=== PATIENT | male | born 1935 | race Caucasian/White ===

== ENCOUNTER 2017-05-26 09:56 | Inpatient (IN) | payer MEDICARE, OTHER ==
[~2017-05-26] VITALS: Ht 172.7 cm; Wt 74.7 kg
[~2017-05-26 09:56] MED LIST: ASPI-1264 PO; KRIL500C PO; METO50TA16 PO; MULT-1141 PO; NOR5T PO; SODI650T29 PO
[2017-05-26] MEDS ORDERED: normal saline 1000ml 1,000 ML IV ONE (11:45)
[2017-05-26] MEDS ORDERED: acetaminophen 325mg tablet PO ONE (12:00)
[2017-05-26 12:11] LABS: BASOPHILS % (AUTO) 0.4 % (0-1); EOSINOPHILS # (AUTO) 0.2 X10'3 (0-0.9); EOSINOPHILS % (AUTO) 3.1 % (0-6); HEMATOCRIT 30.9 % (42.0-52.0); LYMPHOCYTES # (AUTO) 0.7 X10'3 (1.1-4.8); LYMPHOCYTES % (AUTO) 12.2 % (21-51); MEAN CORPUSCULAR HEMOGLOBIN 34.3 PG (27.0-31.0); MEAN CORPUSCULAR HGB CONC 35.5 % (33.0-36.5); MEAN CORPUSCULAR VOLUME 96.8 FL (78-98); MEAN PLATELET VOLUME 9.3 FL (7.4-10.4); MONOCYTES # (AUTO) 0.5 X10'3 (0-0.9); MONOCYTES % (AUTO) 8.8 % (2-12); NEUTROPHILS # (AUTO) 4.6 X10'3 (1.8-7.7); NEUTROPHILS % (AUTO) 75.5 % (42-75); PLATELET COUNT 96 X10'3 (140-440); RED BLOOD COUNT 3.19 X10'6 (4.70-6.10)
[2017-05-26 12:21] LABS: ALANINE AMINOTRANSFERASE 40 U/L (12-78); ALBUMIN 3.1 G/DL (3.4-5.0); ALBUMIN/GLOBULIN RATIO 0.7 (1.1-1.5); ALKALINE PHOSPHATASE 202 IU/L (46-116); ANION GAP 8 (8-16); ASPARTATE AMINO TRANSFERASE 42 U/L (10-37); BLOOD UREA NITROGEN 37 MG/DL (7-18); BUN/CREATININE RATIO 7.3 (5.4-32.0); CALCIUM 9.5 MG/DL (8.5-10.1); CHLORIDE 99 MMOL/L (99-107); GLUCOSE 102 MG/DL (70-104); POTASSIUM 3.5 MMOL/L (3.5-5.1); SODIUM 142 MMOL/L (135-145); TOTAL CARBON DIOXIDE 35.5 MMOL/L (24-32); TOTAL PROTEIN 7.8 G/DL (6.4-8.2); eGFR 11 ML/MIN
[2017-05-26 12:35] LABS: INR 1.2 INR; PARTIAL THROMBOPLASTIN TIME 25 SECONDS (22-32); PROTHROMBIN TIME 12.3 SECONDS (9.0-12.0)
[2017-05-26] MEDS ORDERED: FURO40TA4 PO (16:30)
[2017-05-26] MEDS ORDERED: KETO5DRO39 RIGHTEYE (16:30)
[2017-05-26] MEDS ORDERED: LISI-604 PO (16:30)
[2017-05-26] MEDS ORDERED: OFLO5DRO3 RIGHTEYE (16:30)
[2017-05-26] MEDS ORDERED: CARV-50 PO (16:30)
[2017-05-26] MEDS ORDERED: HYDROcodone/acetaminophen 5mg/325mg tablet PO PRN (16:55)
[2017-05-26] MEDS ORDERED: mag hydrox/Alum hydrox/simeth 30ml oral suspension PO PRN (17:00)
[2017-05-26] MEDS ORDERED: ondansetron/PF 4mg/2ml inj IV PRN (17:00)
[2017-05-26] MEDS ORDERED: HYDROmorphone 1 mg/ml syringe IV PRN (17:00)
[2017-05-26] MEDS ORDERED: acetaminophen 325mg tablet PO PRN (17:00)
[2017-05-26] MEDS ORDERED: bisacodyl 10mg suppository rectal RC PRN (17:00)
[2017-05-26] MEDS ORDERED: HYDROmorphone inj. 0.5 MG/0.5 ML DISP.SYRIN IV PRN (17:09)
[2017-05-26 19:39] VITALS: BP 126/67
[2017-05-26] MEDS: ofloxacin 0.33% 5ml ophthalmic drops RIGHTEYE SCH (21:00)
[2017-05-26] MEDS: docusate sod 100mg capsule PO SCH (21:47)
[2017-05-26] MEDS: heparin, porcine 5000 units/ml vial SQ SCH (21:47)
[2017-05-26 22:00] VITALS: BP 136/70
[2017-05-27 06:00] VITALS: BP 132/74
[2017-05-27 07:16] LABS: BASOPHILS % (AUTO) 0.2 % (0-1); EOSINOPHILS # (AUTO) 0.3 X10'3 (0-0.9); EOSINOPHILS % (AUTO) 3.8 % (0-6); HEMATOCRIT 30.7 % (42.0-52.0); HEMOGLOBIN 10.6 g/dl (14.0-17.9); LYMPHOCYTES # (AUTO) 0.8 X10'3 (1.1-4.8); LYMPHOCYTES % (AUTO) 10.7 % (21-51); MEAN CORPUSCULAR HEMOGLOBIN 33.6 PG (27.0-31.0); MEAN CORPUSCULAR HGB CONC 34.5 % (33.0-36.5); MEAN CORPUSCULAR VOLUME 97.6 FL (78-98); MEAN PLATELET VOLUME 9.6 FL (7.4-10.4); MONOCYTES # (AUTO) 0.8 X10'3 (0-0.9); MONOCYTES % (AUTO) 10.6 % (2-12); NEUTROPHILS # (AUTO) 5.9 X10'3 (1.8-7.7); NEUTROPHILS % (AUTO) 74.7 % (42-75); PLATELET COUNT 100 X10'3 (140-440); RED BLOOD COUNT 3.15 X10'6 (4.70-6.10); WHITE BLOOD COUNT 7.9 X10'3 (4.5-11.0)
[2017-05-27 07:30] LABS: ALANINE AMINOTRANSFERASE 35 U/L (12-78); ALBUMIN 3.1 G/DL (3.4-5.0); ALBUMIN/GLOBULIN RATIO 0.7 (1.1-1.5); ALKALINE PHOSPHATASE 198 IU/L (46-116); ANION GAP 11 (8-16); ASPARTATE AMINO TRANSFERASE 37 U/L (10-37); BILIRUBIN,TOTAL 1.3 MG/DL (0.1-1.0); BLOOD UREA NITROGEN 48 MG/DL (7-18); CALCIUM 9.3 MG/DL (8.5-10.1); CHLORIDE 97 MMOL/L (99-107); GLUCOSE 105 MG/DL (70-104); MAGNESIUM 2.1 MG/DL (1.5-2.4); PHOSPHORUS 4.4 MG/DL (2.3-4.5); POTASSIUM 3.7 MMOL/L (3.5-5.1); SODIUM 140 MMOL/L (135-145); TOTAL CARBON DIOXIDE 31.7 MMOL/L (24-32); TOTAL PROTEIN 7.8 G/DL (6.4-8.2); eGFR 9 ML/MIN
[2017-05-27] MEDS: lisinopril 5mg tablet PO SCH (07:56)
[2017-05-27] MEDS: carVEDilol 12.5mg tablet PO SCH ×2 (07:56→19:50)
[2017-05-27] MEDS: multivitamins, therapeutics tablet PO SCH (07:56)
[2017-05-27] MEDS: furosemide 40mg tablet PO SCH (07:56)
[2017-05-27] MEDS: heparin, porcine 5000 units/ml vial SQ SCH ×3 (07:59→21:57)
[2017-05-27] MEDS: docusate sod 100mg capsule PO SCH ×2 (07:59→19:50)
[2017-05-27] MEDS: ofloxacin 0.33% 5ml ophthalmic drops RIGHTEYE SCH ×3 (08:00→21:00)
[2017-05-27] MEDS ORDERED: albumin (human) 25% 100ml IV 100 ML IV PRN ×2 (08:00→11:05)
[2017-05-27] MEDS: sodium bicarbonate 650mg tablet PO SCH ×2 (08:02→19:50)
[2017-05-27 10:00] VITALS: BP 129/72
[2017-05-27] MEDS ORDERED: heparin 1,000unit/ml 10ml vial 10 ML IV ONE (11:04)
[2017-05-27] MEDS ORDERED: heparin 1,000 units/ml 10ml inj IV ONE (11:05)
[2017-05-27] MEDS ORDERED: epoetin 20,000 units/ml inj IV ONE (11:05)
[2017-05-27] MEDS: diphenhydrAMINE 25mg capsule PO PRN ×2 (12:19→19:50)
[2017-05-27] MEDS ORDERED: morphine 2 MG/ML inj. syringe IV PRN (17:25)
[2017-05-27 18:10] VITALS: BP 135/73
[2017-05-27 19:48] VITALS: BP 137/72
[2017-05-27 22:10] VITALS: BP 135/73
[2017-05-28 05:00] VITALS: BP 142/72
[2017-05-28] MEDS: HYDROcodone/acetaminophen 5mg/325mg tablet PO PRN ×2 (05:32→09:10)
[2017-05-28 06:34] LABS: BASOPHILS % (AUTO) 0.2 % (0-1); EOSINOPHILS # (AUTO) 0.2 X10'3 (0-0.9); EOSINOPHILS % (AUTO) 2.6 % (0-6); HEMATOCRIT 27.8 % (42.0-52.0); HEMOGLOBIN 9.8 g/dl (14.0-17.9); LYMPHOCYTES # (AUTO) 0.9 X10'3 (1.1-4.8); LYMPHOCYTES % (AUTO) 13.9 % (21-51); MEAN CORPUSCULAR HEMOGLOBIN 33.8 PG (27.0-31.0); MEAN CORPUSCULAR HGB CONC 35.2 % (33.0-36.5); MEAN PLATELET VOLUME 8.8 FL (7.4-10.4); MONOCYTES # (AUTO) 0.9 X10'3 (0-0.9); MONOCYTES % (AUTO) 14.4 % (2-12); NEUTROPHILS # (AUTO) 4.5 X10'3 (1.8-7.7); NEUTROPHILS % (AUTO) 68.9 % (42-75); PLATELET COUNT 90 X10'3 (140-440); RED BLOOD COUNT 2.89 X10'6 (4.70-6.10); RED CELL DISTRIBUTION WIDTH 15.2 % (11.5-14.5); WHITE BLOOD COUNT 6.6 X10'3 (4.5-11.0)
[2017-05-28 06:57] LABS: ALANINE AMINOTRANSFERASE 32 U/L (12-78); ALBUMIN 2.9 G/DL (3.4-5.0); ALBUMIN/GLOBULIN RATIO 0.7 (1.1-1.5); ALKALINE PHOSPHATASE 186 IU/L (46-116); ANION GAP 7 (8-16); ASPARTATE AMINO TRANSFERASE 35 U/L (10-37); BILIRUBIN,TOTAL 1.4 MG/DL (0.1-1.0); BLOOD UREA NITROGEN 35 MG/DL (7-18); BUN/CREATININE RATIO 7.4 (5.4-32.0); CALCIUM 8.9 MG/DL (8.5-10.1); CHLORIDE 97 MMOL/L (99-107); GLUCOSE 105 MG/DL (70-104); POTASSIUM 3.7 MMOL/L (3.5-5.1); SODIUM 136 MMOL/L (135-145); TOTAL CARBON DIOXIDE 31.6 MMOL/L (24-32); TOTAL PROTEIN 7.3 G/DL (6.4-8.2); eGFR 12 ML/MIN
[2017-05-28] MEDS: docusate sod 100mg capsule PO SCH ×2 (09:05→19:40)
[2017-05-28] MEDS: carVEDilol 12.5mg tablet PO SCH (09:05)
[2017-05-28] MEDS: multivitamins, therapeutics tablet PO SCH (09:06)
[2017-05-28] MEDS: sodium bicarbonate 650mg tablet PO SCH ×2 (09:06→19:40)
[2017-05-28] MEDS: furosemide 40mg tablet PO SCH (09:06)
[2017-05-28] MEDS: lisinopril 5mg tablet PO SCH (09:06)
[2017-05-28] MEDS: ofloxacin 0.33% 5ml ophthalmic drops RIGHTEYE SCH ×3 (09:07→20:21)
[2017-05-28] MEDS: heparin, porcine 5000 units/ml vial SQ SCH ×2 (09:07→20:18)
[2017-05-28 10:00] VITALS: BP 114/65
[2017-05-28 18:00] VITALS: BP 135/70
[2017-05-28 22:00] VITALS: BP 132/72
[2017-05-29 05:00] VITALS: BP 136/74
[2017-05-29] MEDS: HYDROcodone/acetaminophen 5mg/325mg tablet PO PRN (05:44)
[2017-05-29 06:30] LABS: BASOPHILS % (AUTO) 0.3 % (0-1); EOSINOPHILS # (AUTO) 0.3 X10'3 (0-0.9); EOSINOPHILS % (AUTO) 4.5 % (0-6); HEMATOCRIT 29.1 % (42.0-52.0); HEMOGLOBIN 10.2 g/dl (14.0-17.9); LYMPHOCYTES # (AUTO) 1.2 X10'3 (1.1-4.8); LYMPHOCYTES % (AUTO) 19.7 % (21-51); MEAN CORPUSCULAR HEMOGLOBIN 33.8 PG (27.0-31.0); MEAN CORPUSCULAR HGB CONC 34.9 % (33.0-36.5); MEAN CORPUSCULAR VOLUME 96.8 FL (78-98); MEAN PLATELET VOLUME 9.5 FL (7.4-10.4); MONOCYTES # (AUTO) 0.8 X10'3 (0-0.9); MONOCYTES % (AUTO) 13.8 % (2-12); NEUTROPHILS # (AUTO) 3.7 X10'3 (1.8-7.7); NEUTROPHILS % (AUTO) 61.7 % (42-75); PLATELET COUNT 102 X10'3 (140-440); RED BLOOD COUNT 3.01 X10'6 (4.70-6.10); RED CELL DISTRIBUTION WIDTH 15.7 % (11.5-14.5)
[2017-05-29 06:55] LABS: ALANINE AMINOTRANSFERASE 35 U/L (12-78); ALBUMIN 2.8 G/DL (3.4-5.0); ALBUMIN/GLOBULIN RATIO 0.6 (1.1-1.5); ALKALINE PHOSPHATASE 182 IU/L (46-116); ANION GAP 10 (8-16); ASPARTATE AMINO TRANSFERASE 33 U/L (10-37); BILIRUBIN,TOTAL 1.1 MG/DL (0.1-1.0); BLOOD UREA NITROGEN 53 MG/DL (7-18); BUN/CREATININE RATIO 8.7 (5.4-32.0); CALCIUM 8.7 MG/DL (8.5-10.1); CHLORIDE 99 MMOL/L (99-107); GLUCOSE 89 MG/DL (70-104); PHOSPHORUS 4.7 MG/DL (2.3-4.5); POTASSIUM 3.6 MMOL/L (3.5-5.1); SODIUM 138 MMOL/L (135-145); TOTAL CARBON DIOXIDE 28.8 MMOL/L (24-32); TOTAL PROTEIN 7.4 G/DL (6.4-8.2); eGFR 9 ML/MIN
[2017-05-29] MEDS: lisinopril 5mg tablet PO SCH (08:00)
[2017-05-29] MEDS: carVEDilol 12.5mg tablet PO SCH (08:00)
[2017-05-29] MEDS: furosemide 40mg tablet PO SCH (08:00)
[2017-05-29] MEDS: ofloxacin 0.33% 5ml ophthalmic drops RIGHTEYE SCH ×3 (08:00→21:00)
[2017-05-29] MEDS ORDERED: heparin 1,000unit/ml 10ml vial 10 ML IV ONE (08:28)
[2017-05-29] MEDS ORDERED: heparin 1,000 units/ml 10ml inj IV ONE (08:30)
[2017-05-29] MEDS ORDERED: epoetin 20,000 units/ml inj IV ONE (08:30)
[2017-05-29] MEDS ORDERED: albumin (human) 25% 100ml IV 100 ML IV PRN (08:30)
[2017-05-29] MEDS: docusate sod 100mg capsule PO SCH ×2 (08:55→20:00)
[2017-05-29] MEDS: multivitamins, therapeutics tablet PO SCH (08:55)
[2017-05-29] MEDS: sodium bicarbonate 650mg tablet PO SCH ×2 (08:56→20:52)
[2017-05-29] MEDS: heparin, porcine 5000 units/ml vial SQ SCH ×2 (08:56→20:54)
[2017-05-29 10:00] VITALS: BP 127/65
[2017-05-29 18:00] VITALS: BP 143/78
[2017-05-29 22:00] VITALS: BP 127/66
[2017-05-30 05:00] VITALS: BP 137/84
[2017-05-30 06:37] LABS: BASOPHILS % (AUTO) 0.6 % (0-1); EOSINOPHILS # (AUTO) 0.2 X10'3 (0-0.9); EOSINOPHILS % (AUTO) 3.7 % (0-6); HEMATOCRIT 31.3 % (42.0-52.0); HEMOGLOBIN 10.9 g/dl (14.0-17.9); LYMPHOCYTES # (AUTO) 0.8 X10'3 (1.1-4.8); MEAN CORPUSCULAR HEMOGLOBIN 33.7 PG (27.0-31.0); MEAN CORPUSCULAR HGB CONC 34.8 % (33.0-36.5); MEAN PLATELET VOLUME 9.1 FL (7.4-10.4); MONOCYTES # (AUTO) 0.8 X10'3 (0-0.9); MONOCYTES % (AUTO) 13.3 % (2-12); NEUTROPHILS # (AUTO) 4.3 X10'3 (1.8-7.7); NEUTROPHILS % (AUTO) 69.4 % (42-75); PLATELET COUNT 123 X10'3 (140-440); RED BLOOD COUNT 3.22 X10'6 (4.70-6.10); RED CELL DISTRIBUTION WIDTH 15.9 % (11.5-14.5); WHITE BLOOD COUNT 6.2 X10'3 (4.5-11.0)
[2017-05-30 07:18] LABS: ALANINE AMINOTRANSFERASE 36 U/L (12-78); ALBUMIN 2.9 G/DL (3.4-5.0); ALBUMIN/GLOBULIN RATIO 0.6 (1.1-1.5); ALKALINE PHOSPHATASE 219 IU/L (46-116); ANION GAP 10 (8-16); ASPARTATE AMINO TRANSFERASE 38 U/L (10-37); BILIRUBIN,TOTAL 1.1 MG/DL (0.1-1.0); BLOOD UREA NITROGEN 33 MG/DL (7-18); BUN/CREATININE RATIO 7.5 (5.4-32.0); CALCIUM 9.1 MG/DL (8.5-10.1); CHLORIDE 99 MMOL/L (99-107); GLUCOSE 92 MG/DL (70-104); PHOSPHORUS 3.8 MG/DL (2.3-4.5); SODIUM 139 MMOL/L (135-145); TOTAL CARBON DIOXIDE 30.1 MMOL/L (24-32); TOTAL PROTEIN 7.8 G/DL (6.4-8.2); eGFR 13 ML/MIN
[2017-05-30] MEDS: ofloxacin 0.33% 5ml ophthalmic drops RIGHTEYE SCH ×2 (07:38→13:00)
[2017-05-30] MEDS: docusate sod 100mg capsule PO SCH ×2 (07:42→20:25)
[2017-05-30] MEDS: furosemide 40mg tablet PO SCH (07:43)
[2017-05-30] MEDS: lisinopril 5mg tablet PO SCH (07:43)
[2017-05-30] MEDS: HYDROcodone/acetaminophen 5mg/325mg tablet PO PRN ×3 (07:43→20:26)
[2017-05-30] MEDS: sodium bicarbonate 650mg tablet PO SCH ×2 (07:43→20:26)
[2017-05-30] MEDS: multivitamins, therapeutics tablet PO SCH (07:43)
[2017-05-30] MEDS: heparin, porcine 5000 units/ml vial SQ SCH ×2 (07:44→20:30)
[2017-05-30] MEDS: carVEDilol 12.5mg tablet PO SCH ×2 (08:17→20:29)
[2017-05-30 10:00] VITALS: BP 109/48
[2017-05-30 10:30] VITALS: BP 109/48
[2017-05-30 18:00] VITALS: BP_SYST 116; BP_SYST 146; BP_DIAS 72; BP_DIAS 74
[2017-05-30 20:40] VITALS: BP 137/71
[2017-05-30 22:00] VITALS: BP 117/65
[2017-05-31 05:45] LABS: BASOPHILS % (AUTO) 0.6 % (0-1); EOSINOPHILS # (AUTO) 0.3 X10'3 (0-0.9); EOSINOPHILS % (AUTO) 5.2 % (0-6); HEMATOCRIT 29.8 % (42.0-52.0); HEMOGLOBIN 10.3 g/dl (14.0-17.9); LYMPHOCYTES % (AUTO) 19.9 % (21-51); MEAN CORPUSCULAR HEMOGLOBIN 33.8 PG (27.0-31.0); MEAN CORPUSCULAR HGB CONC 34.7 % (33.0-36.5); MEAN CORPUSCULAR VOLUME 97.5 FL (78-98); MEAN PLATELET VOLUME 8.9 FL (7.4-10.4); MONOCYTES # (AUTO) 0.7 X10'3 (0-0.9); MONOCYTES % (AUTO) 13.5 % (2-12); NEUTROPHILS # (AUTO) 3.2 X10'3 (1.8-7.7); NEUTROPHILS % (AUTO) 60.8 % (42-75); PLATELET COUNT 125 X10'3 (140-440); RED BLOOD COUNT 3.06 X10'6 (4.70-6.10); WHITE BLOOD COUNT 5.2 X10'3 (4.5-11.0)
[2017-05-31 06:00] VITALS: BP 145/76
[2017-05-31 06:26] LABS: ALANINE AMINOTRANSFERASE 34 U/L (12-78); ALBUMIN 2.8 G/DL (3.4-5.0); ALBUMIN/GLOBULIN RATIO 0.6 (1.1-1.5); ALKALINE PHOSPHATASE 201 IU/L (46-116); ANION GAP 8 (8-16); ASPARTATE AMINO TRANSFERASE 36 U/L (10-37); BLOOD UREA NITROGEN 47 MG/DL (7-18); BUN/CREATININE RATIO 8.4 (5.4-32.0); CALCIUM 9.3 MG/DL (8.5-10.1); CHLORIDE 101 MMOL/L (99-107); GLUCOSE 88 MG/DL (70-104); PHOSPHORUS 4.9 MG/DL (2.3-4.5); POTASSIUM 4.1 MMOL/L (3.5-5.1); SODIUM 140 MMOL/L (135-145); TOTAL CARBON DIOXIDE 31.4 MMOL/L (24-32); TOTAL PROTEIN 7.5 G/DL (6.4-8.2); eGFR 10 ML/MIN
[2017-05-31 08:52] VITALS: BP 142/71
[2017-05-31] MEDS: furosemide 40mg tablet PO SCH (08:54)
[2017-05-31] MEDS: sodium bicarbonate 650mg tablet PO SCH ×2 (08:54→19:58)
[2017-05-31] MEDS: docusate sod 100mg capsule PO SCH ×2 (08:54→19:58)
[2017-05-31] MEDS: multivitamins, therapeutics tablet PO SCH (08:54)
[2017-05-31] MEDS: carVEDilol 12.5mg tablet PO SCH ×2 (08:54→19:58)
[2017-05-31] MEDS: lisinopril 5mg tablet PO SCH (08:55)
[2017-05-31] MEDS: heparin, porcine 5000 units/ml vial SQ SCH ×2 (08:55→20:01)
[2017-05-31 10:30] VITALS: BP 126/73
[2017-05-31 18:00] VITALS: BP 139/81
[2017-05-31] MEDS: HYDROcodone/acetaminophen 5mg/325mg tablet PO PRN (19:59)
[2017-05-31 20:03] VITALS: BP 141/77
[2017-05-31] MEDS: temazepam 15mg capsule PO PRN (23:02)
[2017-06-01] MEDS: lisinopril 5mg tablet PO SCH (07:34)
[2017-06-01] MEDS: sodium bicarbonate 650mg tablet PO SCH ×2 (07:34→20:13)
[2017-06-01] MEDS: multivitamins, therapeutics tablet PO SCH (07:34)
[2017-06-01] MEDS: carVEDilol 12.5mg tablet PO SCH ×2 (07:36→20:13)
[2017-06-01] MEDS: furosemide 40mg tablet PO SCH (07:36)
[2017-06-01] MEDS: docusate sod 100mg capsule PO SCH ×2 (07:37→20:13)
[2017-06-01] MEDS ORDERED: normal saline 1000ml 250 ML IV PRN (08:00)
[2017-06-01] MEDS ORDERED: epoetin 20,000 units/ml inj IV ONE (08:00)
[2017-06-01] MEDS ORDERED: LIDOcaine 1% (10mg/ml) 2ml vial SQ ONE (08:00)
[2017-06-01] MEDS ORDERED: heparin 1,000 units/ml 10ml inj IV ONE (08:00)
[2017-06-01] MEDS: heparin, porcine 5000 units/ml vial SQ SCH ×2 (08:00→20:14)
[2017-06-01 09:03] VITALS: BP 133/93
[2017-06-01] MEDS: HYDROcodone/acetaminophen 5mg/325mg tablet PO PRN (09:33)
[2017-06-01] MEDS: diphenhydrAMINE 25mg capsule PO PRN (11:11)
[2017-06-01 11:17] VITALS: BP 121/64
[2017-06-01 18:30] VITALS: BP 143/78
[2017-06-01 22:00] VITALS: BP 118/72
[2017-06-02 06:00] VITALS: BP 118/72
[2017-06-02] MEDS: carVEDilol 12.5mg tablet PO SCH ×2 (07:39→19:25)
[2017-06-02] MEDS: multivitamins, therapeutics tablet PO SCH (07:39)
[2017-06-02] MEDS: docusate sod 100mg capsule PO SCH ×2 (07:39→19:25)
[2017-06-02] MEDS: furosemide 40mg tablet PO SCH (07:39)
[2017-06-02] MEDS: sodium bicarbonate 650mg tablet PO SCH ×2 (07:39→19:25)
[2017-06-02] MEDS: lisinopril 5mg tablet PO SCH (07:39)
[2017-06-02] MEDS: heparin, porcine 5000 units/ml vial SQ SCH ×2 (07:41→19:25)
[2017-06-02 10:00] VITALS: BP_SYST 3
[2017-06-02 18:00] VITALS: BP 134/77
[2017-06-02 22:00] VITALS: BP 122/66
[2017-06-03 06:00] VITALS: BP 132/73
[2017-06-03] MEDS ORDERED: heparin 1,000unit/ml 10ml vial 10 ML IV ONE (07:21)
[2017-06-03] MEDS ORDERED: albumin (human) 25% 100ml IV 100 ML IV PRN (07:25)
[2017-06-03] MEDS ORDERED: heparin 1,000 units/ml 10ml inj IV ONE (07:25)
[2017-06-03] MEDS ORDERED: epoetin 20,000 units/ml inj IV ONE (07:25)
[2017-06-03] MEDS: heparin, porcine 5000 units/ml vial SQ SCH ×2 (08:00→20:33)
[2017-06-03] MEDS: furosemide 40mg tablet PO SCH (08:58)
[2017-06-03] MEDS: docusate sod 100mg capsule PO SCH ×2 (08:58→20:32)
[2017-06-03] MEDS: carVEDilol 12.5mg tablet PO SCH ×2 (08:58→20:32)
[2017-06-03] MEDS: lisinopril 5mg tablet PO SCH (08:59)
[2017-06-03] MEDS: sodium bicarbonate 650mg tablet PO SCH ×2 (09:00→20:32)
[2017-06-03] MEDS: multivitamins, therapeutics tablet PO SCH (09:00)
[2017-06-03 09:27] LABS: BASOPHILS % (AUTO) 0.3 % (0-1); EOSINOPHILS # (AUTO) 0.3 X10'3 (0-0.9); EOSINOPHILS % (AUTO) 5.4 % (0-6); HEMATOCRIT 28.8 % (42.0-52.0); LYMPHOCYTES # (AUTO) 0.8 X10'3 (1.1-4.8); LYMPHOCYTES % (AUTO) 15.5 % (21-51); MEAN CORPUSCULAR HEMOGLOBIN 33.9 PG (27.0-31.0); MEAN CORPUSCULAR HGB CONC 34.8 % (33.0-36.5); MEAN CORPUSCULAR VOLUME 97.6 FL (78-98); MEAN PLATELET VOLUME 8.1 FL (7.4-10.4); MONOCYTES # (AUTO) 0.5 X10'3 (0-0.9); MONOCYTES % (AUTO) 10.6 % (2-12); NEUTROPHILS # (AUTO) 3.4 X10'3 (1.8-7.7); NEUTROPHILS % (AUTO) 68.2 % (42-75); PLATELET COUNT 141 X10'3 (140-440); RED BLOOD COUNT 2.95 X10'6 (4.70-6.10); RED CELL DISTRIBUTION WIDTH 15.1 % (11.5-14.5)
[2017-06-03 09:43] LABS: ALBUMIN 2.8 G/DL (3.4-5.0); ANION GAP 9 (8-16); BLOOD UREA NITROGEN 55 MG/DL (7-18); BUN/CREATININE RATIO 8.9 (5.4-32.0); CALCIUM 9.1 MG/DL (8.5-10.1); CHLORIDE 98 MMOL/L (99-107); GLUCOSE 112 MG/DL (70-104); PHOSPHORUS 5.2 MG/DL (2.3-4.5); SODIUM 136 MMOL/L (135-145); TOTAL CARBON DIOXIDE 28.9 MMOL/L (24-32); eGFR 9 ML/MIN
[2017-06-03 18:00] VITALS: BP 146/55
[2017-06-03 22:00] VITALS: BP 140/76
[2017-06-03] MEDS: temazepam 15mg capsule PO PRN (23:43)
[2017-06-04 05:00] VITALS: BP 143/72
[2017-06-04] MEDS: HYDROcodone/acetaminophen 5mg/325mg tablet PO PRN (05:35)
[2017-06-04] MEDS: sodium bicarbonate 650mg tablet PO SCH ×2 (07:52→21:01)
[2017-06-04] MEDS: heparin, porcine 5000 units/ml vial SQ SCH ×2 (07:52→21:00)
[2017-06-04] MEDS: docusate sod 100mg capsule PO SCH ×2 (07:52→21:00)
[2017-06-04] MEDS: furosemide 40mg tablet PO SCH (07:52)
[2017-06-04] MEDS: lisinopril 5mg tablet PO SCH (07:52)
[2017-06-04] MEDS: multivitamins, therapeutics tablet PO SCH (07:52)
[2017-06-04] MEDS: carVEDilol 12.5mg tablet PO SCH ×2 (07:52→21:01)
[2017-06-04] MEDS ORDERED: traMADol 50MG tablet PO PRN (09:40)
[2017-06-04 10:04] VITALS: BP 113/53
[2017-06-04] MEDS: calcium acetate 667mg (PhosLO) capsule PO SCH ×2 (13:03→18:09)
[2017-06-04 18:00] VITALS: BP 139/72
[2017-06-04 22:30] VITALS: BP 124/68
[2017-06-04] MEDS: temazepam 15mg capsule PO PRN (23:36)
[2017-06-05 05:00] VITALS: BP 137/80
[2017-06-05] MEDS: heparin, porcine 5000 units/ml vial SQ SCH ×2 (06:21→20:53)
[2017-06-05] MEDS: carVEDilol 12.5mg tablet PO SCH ×2 (07:35→20:52)
[2017-06-05] MEDS: lisinopril 5mg tablet PO SCH (07:35)
[2017-06-05] MEDS ORDERED: normal saline 1000ml 250 ML IV PRN (07:49)
[2017-06-05] MEDS ORDERED: epoetin 20,000 units/ml inj IV ONE (07:50)
[2017-06-05] MEDS ORDERED: LIDOcaine 1% (10mg/ml) 2ml vial SQ ONE (07:50)
[2017-06-05] MEDS ORDERED: heparin 1,000 units/ml 10ml inj IV ONE (07:50)
[2017-06-05] MEDS: sodium bicarbonate 650mg tablet PO SCH ×2 (08:01→20:52)
[2017-06-05] MEDS: docusate sod 100mg capsule PO SCH ×2 (08:01→20:52)
[2017-06-05] MEDS: calcium acetate 667mg (PhosLO) capsule PO SCH ×3 (08:01→17:01)
[2017-06-05] MEDS: multivitamins, therapeutics tablet PO SCH (08:01)
[2017-06-05] MEDS: furosemide 40mg tablet PO SCH (08:01)
[2017-06-05 09:06] LABS: ALANINE AMINOTRANSFERASE 34 U/L (12-78); ALBUMIN 2.8 G/DL (3.4-5.0); ALBUMIN/GLOBULIN RATIO 0.6 (1.1-1.5); ALKALINE PHOSPHATASE 238 IU/L (46-116); ANION GAP 10 (8-16); ASPARTATE AMINO TRANSFERASE 35 U/L (10-37); BILIRUBIN,TOTAL 0.7 MG/DL (0.1-1.0); BLOOD UREA NITROGEN 54 MG/DL (7-18); BUN/CREATININE RATIO 8.9 (5.4-32.0); CALCIUM 9.2 MG/DL (8.5-10.1); CHLORIDE 98 MMOL/L (99-107); GLUCOSE 113 MG/DL (70-104); POTASSIUM 3.9 MMOL/L (3.5-5.1); SODIUM 138 MMOL/L (135-145); TOTAL CARBON DIOXIDE 29.6 MMOL/L (24-32); TOTAL PROTEIN 7.7 G/DL (6.4-8.2); eGFR 9 ML/MIN
[2017-06-05 09:44] VITALS: BP 133/64
[2017-06-05 10:40] VITALS: BP 135/58
[2017-06-05 11:22] LABS: HEMATOCRIT 32.5 % (42.0-52.0); HEMOGLOBIN 11.1 g/dl (14.0-17.9); MEAN CORPUSCULAR HEMOGLOBIN 33.4 PG (27.0-31.0); MEAN CORPUSCULAR HGB CONC 34.1 % (33.0-36.5); MEAN PLATELET VOLUME 9.1 FL (7.4-10.4); PLATELET COUNT 167 X10'3 (140-440); RED BLOOD COUNT 3.31 X10'6 (4.70-6.10); RED CELL DISTRIBUTION WIDTH 15.9 % (11.5-14.5); WHITE BLOOD COUNT 4.9 X10'3 (4.5-11.0)
[2017-06-05] MEDS: diphenhydrAMINE 25mg capsule PO PRN (12:35)
[2017-06-05 18:00] VITALS: BP 127/64
[2017-06-05 22:00] VITALS: BP 140/68
[2017-06-06 06:00] VITALS: BP 142/71
[2017-06-06] MEDS: calcium acetate 667mg (PhosLO) capsule PO SCH ×3 (07:54→18:01)
[2017-06-06] MEDS: carVEDilol 12.5mg tablet PO SCH ×2 (07:54→19:46)
[2017-06-06] MEDS: lisinopril 5mg tablet PO SCH (07:54)
[2017-06-06] MEDS: furosemide 40mg tablet PO SCH (07:54)
[2017-06-06] MEDS: heparin, porcine 5000 units/ml vial SQ SCH ×2 (07:55→19:46)
[2017-06-06] MEDS: multivitamins, therapeutics tablet PO SCH (07:55)
[2017-06-06] MEDS: sodium bicarbonate 650mg tablet PO SCH ×2 (07:55→19:46)
[2017-06-06] MEDS: docusate sod 100mg capsule PO SCH ×2 (07:55→19:46)
[2017-06-06 18:00] VITALS: BP 142/62
[2017-06-06] MEDS: temazepam 15mg capsule PO PRN (21:58)
[2017-06-06 22:00] VITALS: BP 123/65
[2017-06-07 07:06] VITALS: BP 159/64
[2017-06-07] MEDS: heparin, porcine 5000 units/ml vial SQ SCH ×2 (08:21→20:58)
[2017-06-07] MEDS: carVEDilol 12.5mg tablet PO SCH ×2 (08:22→20:00)
[2017-06-07] MEDS: furosemide 40mg tablet PO SCH (08:22)
[2017-06-07] MEDS: docusate sod 100mg capsule PO SCH ×2 (08:22→20:57)
[2017-06-07] MEDS: multivitamins, therapeutics tablet PO SCH (08:22)
[2017-06-07] MEDS: calcium acetate 667mg (PhosLO) capsule PO SCH ×3 (08:22→17:18)
[2017-06-07] MEDS: lisinopril 5mg tablet PO SCH (08:22)
[2017-06-07] MEDS: sodium bicarbonate 650mg tablet PO SCH ×2 (08:22→20:57)
[2017-06-07 18:00] VITALS: BP 132/72
[2017-06-07 22:00] VITALS: BP 148/78
[2017-06-08] MEDS ORDERED: normal saline 1000ml 250 ML IV PRN (07:18)
[2017-06-08] MEDS ORDERED: heparin 1,000 units/ml 10ml inj IV ONE (07:20)
[2017-06-08] MEDS: calcium acetate 667mg (PhosLO) capsule PO SCH ×2 (07:29→12:59)
[2017-06-08] MEDS: furosemide 40mg tablet PO SCH (07:30)
[2017-06-08] MEDS: sodium bicarbonate 650mg tablet PO SCH (07:30)
[2017-06-08] MEDS: docusate sod 100mg capsule PO SCH (07:30)
[2017-06-08] MEDS: carVEDilol 12.5mg tablet PO SCH (07:30)
[2017-06-08] MEDS: multivitamins, therapeutics tablet PO SCH (07:30)
[2017-06-08] MEDS: lisinopril 5mg tablet PO SCH (07:30)
[2017-06-08] MEDS: heparin, porcine 5000 units/ml vial SQ SCH (08:00)
[2017-06-08] MEDS: diphenhydrAMINE 25mg capsule PO PRN (09:59)
[2017-06-08 10:00] VITALS: BP 137/64
[2017-06-08] MEDS ORDERED: PHO667C PO (15:11)
[2017-06-08] MEDS ORDERED: HYDR-569 PO (15:11)
[2017-06-08] MEDS ORDERED: TRAM50TA2 PO (15:11)
[2017-06-08] MEDS ORDERED: FOLI1TAB16 PO (15:11)
[2017-06-08] MEDS ORDERED: COL100C PO (15:11)
[2017-06-08] MEDS ORDERED: VIT1TABL50 PO (15:11)
== END 2017-06-08 17:50 | DRG 535 ==
LOC: ER 09:56 → ED HOLD 16:58 → EDBEDREQ 18:00 → ORTHO 4S 19:10
PROVIDERS: ADMIT Internal Medicine Critical Care Medicine; ATTEND Internal Medicine Critical Care Medicine
PROC: 5A1D70Z Performance of Urinary Filtration, Intermittent, Less than 6 Hours Per Day (ICD-10-PCS; principal; 2017-05-27)
PROC: 5A1D70Z Performance of Urinary Filtration, Intermittent, Less than 6 Hours Per Day (ICD-10-PCS; 2017-05-29)
PROC: 5A1D70Z Performance of Urinary Filtration, Intermittent, Less than 6 Hours Per Day (ICD-10-PCS; 2017-06-01)
PROC: 5A1D70Z Performance of Urinary Filtration, Intermittent, Less than 6 Hours Per Day (ICD-10-PCS; 2017-06-03)
PROC: 5A1D70Z Performance of Urinary Filtration, Intermittent, Less than 6 Hours Per Day (ICD-10-PCS; 2017-06-05)
PROC: 5A1D70Z Performance of Urinary Filtration, Intermittent, Less than 6 Hours Per Day (ICD-10-PCS; 2017-06-08)
DX: S32.402A Unspecified fracture of left acetabulum, initial encounter for closed fracture (principal); N18.6 End stage renal disease; I13.2 Hypertensive heart and chronic kidney disease with heart failure and with stage 5 chronic kidney disease, or end stage renal disease; J44.9 Chronic obstructive pulmonary disease, unspecified; I50.22 Chronic systolic (congestive) heart failure; I25.10 Atherosclerotic heart disease of native coronary artery without angina pectoris; N40.0 Benign prostatic hyperplasia without lower urinary tract symptoms; G89.29 Other chronic pain; W01.0XXA Fall on same level from slipping, tripping and stumbling without subsequent striking against object, initial encounter; Z99.2 Dependence on renal dialysis; Z98.49 Cataract extraction status, unspecified eye; Z90.49 Acquired absence of other specified parts of digestive tract; Z88.2 Allergy status to sulfonamides; Z88.6 Allergy status to analgesic agent; Z79.01 Long term (current) use of anticoagulants; Z79.899 Other long term (current) drug therapy; Z86.73 Personal history of transient ischemic attack (TIA), and cerebral infarction without residual deficits; Z80.7 Family history of other malignant neoplasms of lymphoid, hematopoietic and related tissues; Z82.49 Family history of ischemic heart disease and other diseases of the circulatory system; Z82.5 Family history of asthma and other chronic lower respiratory diseases; Z83.3 Family history of diabetes mellitus; Y92.098 Other place in other non-institutional residence as the place of occurrence of the external cause; Y93.01 Activity, walking, marching and hiking; Y99.8 Other external cause status; Z75.1 Person awaiting admission to adequate facility elsewhere
CPT/HCPCS: 36415; 71045; 72170; 72190; 73030; 73060; 73502; 73700; 80048; 80053; 83735; 84100; 85025; 85027; 85610; 85730; 87070; 93005; 96360; 96361; 97110; 97116; 97161; 97530; 97535; 99285; A6213; A6402; G0257; J0885; J1170; J1644; J7030; Q0163

== ENCOUNTER 2017-06-24 12:38 | Outpatient (CLI) | payer OTHER ==
[~2017-06-24 12:38] MED LIST changes: -ASPI-1264 PO; +CARV-50 PO; +COL100C PO; +FOLI1TAB16 PO; +FURO40TA4 PO; +HYDR-569 PO; +KETO5DRO39 RIGHTEYE; -KRIL500C PO; +LISI-604 PO; -METO50TA16 PO; -MULT-1141 PO; -NOR5T PO; +OFLO5DRO3 RIGHTEYE; +PHO667C PO; +TRAM50TA2 PO; +VIT1TABL50 PO
== END 2017-06-24 23:59 | disposition home or self-care (01) ==
LOC: 64 CT 12:38
DX: S32.492A Other specified fracture of left acetabulum, initial encounter for closed fracture (principal); X58.XXXA Exposure to other specified factors, initial encounter; Y93.89 Activity, other specified; Y92.89 Other specified places as the place of occurrence of the external cause; Y99.8 Other external cause status
CPT/HCPCS: 73700

== ENCOUNTER 2017-08-25 06:14 | Day surgery (SDC) | payer MEDICARE, OTHER ==
[2017-08-25] VITALS (8 sets, daily range): BP systolic 119–146; BP diastolic 51–86
[~2017-08-25] VITALS: Ht 172.7 cm; Wt 74.0 kg
[2017-08-25] MEDS ORDERED: LORA-512 PO (06:45)
[2017-08-25] MEDS ORDERED: DIPH-423 PO (06:45)
[2017-08-25] MEDS ORDERED: MELA3TAB PO (06:45)
[2017-08-25] MEDS ORDERED: GUAI-178 PO (06:45)
[2017-08-25] MEDS ORDERED: POLY17PO10 PO (06:45)
[2017-08-25] MEDS ORDERED: PHO667C PO (06:45)
[2017-08-25] MEDS ORDERED: normal saline 1000ml 1,000 ML IV PRN (06:50)
[2017-08-25 07:15] LABS: BASOPHILS % (AUTO) 0.4 % (0-1); EOSINOPHILS # (AUTO) 0.2 X10'3 (0-0.9); EOSINOPHILS % (AUTO) 3.5 % (0-6); HEMATOCRIT 34.6 % (42.0-52.0); HEMOGLOBIN 11.9 g/dl (14.0-17.9); MEAN CORPUSCULAR HEMOGLOBIN 33.3 PG (27.0-31.0); MEAN CORPUSCULAR HGB CONC 34.3 % (33.0-36.5); MEAN CORPUSCULAR VOLUME 97.2 FL (78-98); MONOCYTES # (AUTO) 0.8 X10'3 (0-0.9); MONOCYTES % (AUTO) 12.1 % (2-12); NEUTROPHILS # (AUTO) 4.6 X10'3 (1.8-7.7); PLATELET COUNT 131 X10'3 (140-440); RED BLOOD COUNT 3.56 X10'6 (4.70-6.10); RED CELL DISTRIBUTION WIDTH 15.7 % (11.5-14.5); WHITE BLOOD COUNT 6.7 X10'3 (4.5-11.0)
[2017-08-25] MEDS ORDERED: midazolam 2 mg/2 ml injection IV PRN (08:00)
[2017-08-25] MEDS ORDERED: fentaNYL/PF 50MCG/1 ML 2ML syringe IV PRN (08:00)
[2017-08-25] MEDS ORDERED: LIDOcaine 1%/PF (10mg/ml) 5ml vial ONE (08:23)
[2017-08-25] MEDS ORDERED: iohexol 300mg/ml 100ml inj. ONE (08:23)
[2017-08-25] MEDS ORDERED: heparin 1,000 UNITS/NS 500ml 500 ML ONE (08:25)
[2017-08-25] MEDS ORDERED: fentaNYL/PF 50MCG/1 ML 2ML syringe ONE (08:25)
== END 2017-08-25 11:00 | disposition home or self-care (01) ==
LOC: SSTAY O 06:14
PROVIDERS: ATTEND Radiology Diagnostic Radiology
DX: T82.858A Stenosis of other vascular prosthetic devices, implants and grafts, initial encounter (principal); E11.22 Type 2 diabetes mellitus with diabetic chronic kidney disease; I13.0 Hypertensive heart and chronic kidney disease with heart failure and stage 1 through stage 4 chronic kidney disease, or unspecified chronic kidney disease; N18.9 Chronic kidney disease, unspecified; I50.22 Chronic systolic (congestive) heart failure; J44.9 Chronic obstructive pulmonary disease, unspecified; I25.10 Atherosclerotic heart disease of native coronary artery without angina pectoris; E78.5 Hyperlipidemia, unspecified; G47.33 Obstructive sleep apnea (adult) (pediatric); K21.9 Gastro-esophageal reflux disease without esophagitis; N40.0 Benign prostatic hyperplasia without lower urinary tract symptoms; M19.90 Unspecified osteoarthritis, unspecified site; Z88.5 Allergy status to narcotic agent; Z99.2 Dependence on renal dialysis; Z86.73 Personal history of transient ischemic attack (TIA), and cerebral infarction without residual deficits; Z90.89 Acquired absence of other organs; Z98.42 Cataract extraction status, left eye; Z98.41 Cataract extraction status, right eye; Z98.52 Vasectomy status; Z88.2 Allergy status to sulfonamides; Z98.890 Other specified postprocedural states; Z79.899 Other long term (current) drug therapy; Z91.048 Other nonmedicinal substance allergy status; Y83.2 Surgical operation with anastomosis, bypass or graft as the cause of abnormal reaction of the patient, or of later complication, without mention of misadventure at the time of the procedure; Y92.89 Other specified places as the place of occurrence of the external cause
CPT/HCPCS: 36415; 36902; 85025; C1725; C1769; C1894; J1644; J2001; J3010; J7030; Q9967; A4620

== ENCOUNTER 2017-10-08 06:12 | Day surgery (SDC) | payer MEDICARE, OTHER ==
[2017-10-08] VITALS (10 sets, daily range): BP systolic 94–125; BP diastolic 57–77
[~2017-10-08 06:12] MED LIST changes: -COL100C PO; +DIPH-423 PO; -FOLI1TAB16 PO; +GUAI-178 PO; -HYDR-569 PO; -KETO5DRO39 RIGHTEYE; +LIDOcaine 1% 30ml preserv. free vial SQ STA; +LORA-512 PO; +MELA3TAB PO; -OFLO5DRO3 RIGHTEYE; +POLY17PO10 PO; -SODI650T29 PO; -TRAM50TA2 PO; -VIT1TABL50 PO
[2017-10-08] MEDS ORDERED: LORA-512 PO (06:47)
[2017-10-08] MEDS ORDERED: normal saline 1000ml 1,000 ML IV PRN (07:00)
[2017-10-08] MEDS ORDERED: LIDOcaine 1% 30ml preserv. free vial SQ PRN (07:00)
[2017-10-08] MEDS ORDERED: albumin (human) 25% 100 ML IV solution IV PRN (07:00)
== END 2017-10-08 10:25 | disposition home or self-care (01) ==
LOC: SSTAY O 06:12
PROVIDERS: ATTEND Radiology Diagnostic Radiology
DX: R18.8 Other ascites (principal); I13.2 Hypertensive heart and chronic kidney disease with heart failure and with stage 5 chronic kidney disease, or end stage renal disease; N18.6 End stage renal disease; I50.9 Heart failure, unspecified; E78.5 Hyperlipidemia, unspecified; K21.9 Gastro-esophageal reflux disease without esophagitis; G47.33 Obstructive sleep apnea (adult) (pediatric); M19.90 Unspecified osteoarthritis, unspecified site; N40.0 Benign prostatic hyperplasia without lower urinary tract symptoms; E11.22 Type 2 diabetes mellitus with diabetic chronic kidney disease; Z88.3 Allergy status to other anti-infective agents; Z88.2 Allergy status to sulfonamides; Z79.01 Long term (current) use of anticoagulants; Z83.3 Family history of diabetes mellitus; Z82.49 Family history of ischemic heart disease and other diseases of the circulatory system; Z90.89 Acquired absence of other organs; Z83.6 Family history of other diseases of the respiratory system; Z88.5 Allergy status to narcotic agent; Z86.73 Personal history of transient ischemic attack (TIA), and cerebral infarction without residual deficits; Z99.2 Dependence on renal dialysis; Z98.41 Cataract extraction status, right eye; Z98.42 Cataract extraction status, left eye; Z98.52 Vasectomy status; Z88.8 Allergy status to other drugs, medicaments and biological substances; Z79.899 Other long term (current) drug therapy; Z98.890 Other specified postprocedural states; Z91.048 Other nonmedicinal substance allergy status
CPT/HCPCS: 49083; J3490; J7030; P9047; A6257

== ENCOUNTER 2019-01-19 13:36 | Outpatient (CLI) | payer MEDICARE, OTHER ==
[~2019-01-19 13:36] MED LIST changes: -LIDOcaine 1% 30ml preserv. free vial SQ STA; -MELA3TAB PO; +MELA3TAB64 PO
== END 2019-01-19 23:59 | disposition home or self-care (01) ==
LOC: RAD 13:36
DX: R13.12 Dysphagia, oropharyngeal phase (principal); K21.9 Gastro-esophageal reflux disease without esophagitis; I11.0 Hypertensive heart disease with heart failure; I50.9 Heart failure, unspecified
CPT/HCPCS: 74230